=== PATIENT | female | born 1990 | race Two or more races ===

== ENCOUNTER 2017-01-22 12:57 | Emergency (ER) | payer OTHER ==
[~2017-01-22] VITALS: Ht 154.9 cm; Wt 59.0 kg
[2017-01-22] MEDS ORDERED: KETOROLAC TROMETH 60MG/2ML VIAL IM ONE (15:45)
[2017-01-22 15:50] VITALS: BP 97/53
== END 2017-01-22 16:03 | disposition home or self-care (01) ==
LOC: ER 13:00
DX: N83.202 Unspecified ovarian cyst, left side (principal)
CPT/HCPCS: 76856; 81025